=== PATIENT | female | born 1980 | race Caucasian/White ===

== ENCOUNTER 2017-03-07 21:59 | Emergency (ER) | payer OTHER, MEDICAID ==
[~2017-03-07] VITALS: Ht 154.9 cm; Wt 69.4 kg
[~2017-03-07 21:59] MED LIST: ACYCLOVIR 400400 MG PO; AMOXICILLIN 50500 MG PO; ANTIVERT25 MG PO; FLEXERIL PO; HYDROCODONE-AP1 EAC6 PO; IBUPROFEN 600600 M1 PO; LIDOCAINE 22 %/30 GM TOP; NORCO 5-325 TA1 EACH PO; PENICILLIN V P500 MG PO; TRAMADOL 50 MG50 MG PO
[2017-03-07 22:53] LABS: ABSOLUTE EOSINOPHILS 0.1 thou/uL (0.0-0.7); ABSOLUTE LYMPHOCYTES 3.1 thou/uL (0.8-5.3); ABSOLUTE MONOCYTES 0.7 thou/uL (0.0-1.2); ABSOLUTE NEUTROPHILS 5.9 thou/uL (1.6-8.1); BASOPHILS 0.5 %; EOSINOPHILS 1.3 %; HEMOGLOBIN 12.5 gm/dL (12.0-15.0); LYMPHOCYTES 31.1 %; MCH 28.8 pg (26.0-34.0); MCHC 33.8 g/dL (28.0-37.0); MCV 85.2 fL (80.0-100.0); MONOCYTES 7.3 %; MPV 8.6 fl. (7.2-11.1); NUCLEATED RBCS 0 /100WBC; PLATELET COUNT* 255 thou/uL (150-400); POLYS 59.8 %; RBC 4.34 mil/uL (4.20-5.00); RDW-CV 12.9 % (10.5-14.5); WBC 9.9 thou/uL (4.0-11.0)
[2017-03-07 23:04] LABS: CALCIUM 9.3 mg/dL (8.5-10.1); CREATININE 0.7 mg/dL (0.6-1.3); POTASSIUM 3.8 mmol/L (3.5-5.1)
[2017-03-07] MEDS ORDERED: NORETHINDRONE AC5 M1 PO (23:14)
[2017-03-07 23:20] VITALS: BP 133/89
== END 2017-03-07 23:21 | disposition home or self-care (01) ==
LOC: M.ERS 21:59
PROVIDERS: Emergency Medicine
DX: N93.9 Abnormal uterine and vaginal bleeding, unspecified (principal)